=== PATIENT | female | born 1965 | race Caucasian/White ===

== ENCOUNTER 2019-10-04 14:44 | Emergency (ER) | payer OTHER ==
[~2019-10-04] VITALS: Ht 165.1 cm; Wt 80.0 kg
[2019-10-04 15:26] VITALS: BP 0/0
== END 2019-10-04 16:50 | disposition left against medical advice (07) ==
LOC: ER 15:03
DX: F23 Brief psychotic disorder (principal)
CPT/HCPCS: 99283